=== PATIENT | male | born 1960 | race Two or more races ===

== ENCOUNTER → 2018-05-22 | Outpatient (CLI) | payer OTHER | END | disposition home or self-care (01) | LOC: MRI 10:47 | DX: M15.8 Other polyosteoarthritis (principal); M25.562 Pain in left knee | CPT/HCPCS: 73721 ==

== ENCOUNTER 2020-12-05 07:30 | Outpatient (CLI) | payer OTHER | END 2020-12-05 07:41 | disposition home or self-care (01) | LOC: LAB 07:30 | PROVIDERS: ATTEND Acupuncturist | DX: E11.9 Type 2 diabetes mellitus without complications (principal); E03.8 Other specified hypothyroidism; E78.00 Pure hypercholesterolemia, unspecified; C19 Malignant neoplasm of rectosigmoid junction; N39.0 Urinary tract infection, site not specified; E55.9 Vitamin D deficiency, unspecified ==

== ENCOUNTER 2020-12-05 08:03 | Outpatient (CLI) | payer OTHER | END 2020-12-05 08:19 | disposition home or self-care (01) | LOC: RAD 08:03 | PROVIDERS: ATTEND Acupuncturist | DX: I70.0 Atherosclerosis of aorta (principal); R10.10 Upper abdominal pain, unspecified; C61 Malignant neoplasm of prostate ==

== ENCOUNTER 2021-06-22 08:03 | Outpatient (CLI) | payer OTHER | END 2021-06-22 08:13 | disposition home or self-care (01) | LOC: SONOGRAMA 08:03 | PROVIDERS: ATTEND Acupuncturist | DX: N50.89 Other specified disorders of the male genital organs (principal); N50.811 Right testicular pain ==

== ENCOUNTER → 2021-06-22 09:19 | Outpatient (CLI) | payer OTHER | END | disposition home or self-care (01) | LOC: LAB 09:19 | PROVIDERS: ATTEND Acupuncturist | DX: R94.7 Abnormal results of other endocrine function studies (principal); N41.8 Other inflammatory diseases of prostate ==

== ENCOUNTER 2023-06-13 06:56 | Outpatient (CLI) | payer OTHER ==
[2023-06-13 07:49] LABS: URINE APPEARANCE Clear; URINE BILIRRUBIN Negative (NEGATIVE); URINE BLOOD Negative; URINE COLOR Yellow; URINE GLUCOSE Negative (NEGATIVE); URINE LEUKOCYTE Negative; URINE NITRATE Negative; URINE PROTEIN Negative (NEGATIVE); URINE UROBILINOGEN 0.2 E.U./dl
[2023-06-13 07:53] LABS: URINE RBC 5.7 uL (0.0-20.8)
[2023-06-13 07:56] LABS: URINE BACTERIA 3.7 uL (0.0-1933); URINE EPITHELIAL CELLS 0.6 uL (0.0-38.8); URINE WBC 1.6 uL (0.0-23.2)
== END 2023-06-13 06:59 | disposition home or self-care (01) ==
LOC: LAB 06:56
PROVIDERS: ATTEND Surgery
DX: Z12.5 Encounter for screening for malignant neoplasm of prostate (principal)